=== PATIENT | male | born 1990 | race Caucasian/White ===

== ENCOUNTER 2020-05-13 09:21 | Outpatient (REF) | payer OTHER, SELFPAY ==
--- NOTE | 2020-05-13 10:59 | MHC.AU.P13 ---
Adult Audiological Evaluation Date of Visit: 05/13/20 Band Sewer Used: Not Applicable Reason for Appointment: Audiologic evaluation due to fluctuating/intermittent symptoms of blocked ear sensation and decreased hearing ability, right ear greater than right. Does patient feel they have a hearing loss?: Yes If Yes, Which Ear?: Both Ears When Was Hearing Difficulty First Noticed?: Since childhood with symptoms increasing over past few years. Has hearing been tested previously?: No Hearing Handicap Inventory HHIE SCORE: 26 Based on HHIE score, patient has: Severe perceived hearing handicap Ear History: Recent Ear Drainage: Perceives fluid in the ear intermittently Recent Ear Pain: Right Ear Ear Infections in Childhood: Both Ears History of Ear Wax Buildup: Both Ears Previous Ear Surgery: Pressure Equalization Tubes as a child Bothersome Tinnitus/Ringing/Noises in Ears: Brief and intermittent Blocked/Full Sensation in Ear(s): Both Ears History of occupational noise exposure?: Yes Medical History: Medical History: High Blood Pressure Otoscopy: Right Ear: Partially occluded with cerumen Left Ear: Partially occluded with cerumen Tympanometry: Right Ear: Negative Middle Ear Pressure (Type C) Hypercompliant Middle Ear System (Type Ad) Left Ear: Normal Middle Ear System (Type A) Otoacoustic Emissions Frequency Range Used: 1.6-8 kHz Right Ear Results: Present at 0677-1990 Hz Absent 7330-8243 Hz Analysis: Present emissions suggest normal cochlear function Left Ear Results: Present at 8809-7593 Hz Absent at 5097-9344 Hz Analysis: Present emissions suggest normal cochlear function Hearing Evaluation: Transducer(s) Used: Insert Earphones Bone Conduction Method: Conventional Audiometry Stimuli Used: Pure Tones Right Ear: Description of Hearing: Normal to mild conductive hearing loss Left Ear: Description of Hearing: Normal to borderline normal hearing thresholds Speech Recognition Threshold (SRT): Method Used: Monitored Live Voice Stimuli Used: Spondee Words Right Ear: 15 Left Ear: 10 Word Discrimination: Method: Recorded Lists Word Lists Used: NU-6 Right Ear: 96% at a listening level of 55 dB HL Left Ear: 100% at a listening level of 50 dB HL Comparison: Compared to the most recent evaluation: N/A Recommendations: Recommendations: Audiological re-evaluation in 6 months. Recommendations (Other): 1) Discussed how the history of middle ear dysfunction and the hypercompliant right tympanic membrane can relate to Joey's current ear symptoms. He has an appointment tomorrow with his Primary Care Physician and advise considering trying a nasal spray and/or decongestant for the ear symptoms. Cerumen removal may also help the sensation of fluid in the ears after showering. 2) Advise a 6 month audiologic re-evaluation to monitor middle ear function and hearing levels. Will send a reminder card. If symptoms improve, Joey does not have to schedule an appointment; however, if symptoms persist, the re-evaluation should be scheduled. Diagnosis: Primary Diagnosis: H69.91 Unspecified Eustachian Tube Dysfunction, Right Ear Services Performed: Services Performed: Comprehensive Audiological Evaluation (CPT 70697) Diagnostic Otoacoustic Emissions (CPT 65928, 26+TC) Tympanometry (CPT 39271) Signature: Provider: Yulia Garcia, CCC-A
== END 2020-05-13 09:22 | disposition home or self-care (01) ==
LOC: HO.SH 09:21
PROVIDERS: PCP Internal Medicine Rheumatology; Referring Provider Internal Medicine; Visit Provider Internal Medicine Rheumatology
DX: H69.91 Unspecified Eustachian tube disorder, right ear (principal)
CPT/HCPCS: 92557; 92567; 92588